=== PATIENT | male | born 1960 | race Native Hawaiian/Other Pacific Islander ===

== ENCOUNTER 2017-04-28 13:28 | Outpatient (CLI) | payer OTHER | END 2017-04-28 13:34 | disposition short-term general hospital (02) | LOC: AMB 13:28 | DX: M25.552 Pain in left hip (principal); S00.83XA Contusion of other part of head, initial encounter; W11.XXXA Fall on and from ladder, initial encounter; Y92.69 Other specified industrial and construction area as the place of occurrence of the external cause | CPT/HCPCS: A0425; A0427 ==

== ENCOUNTER 2017-04-28 13:34 | Emergency (ER) | payer OTHER ==
[~2017-04-28] VITALS: Ht 182.9 cm; Wt 127.0 kg
[2017-04-28 14:19] VITALS: BP 116/69; TEMP 98.4
[2017-04-28 14:37] LABS: PLATELET COUNT 240 K/uL (142-355)
[2017-04-28 14:42] LABS: POTASSIUM 3.6 mmol/L (3.6-5.2)
[2017-04-28 14:49] LABS: PARTIAL THROMBOPLASTIN TIME 22.3 SECONDS (24.5-33.6)
== END 2017-04-28 15:40 | disposition short-term general hospital (02) ==
LOC: ED 13:34
PROVIDERS: Family Medicine
DX: S32.89XA Fracture of other parts of pelvis, initial encounter for closed fracture (principal); Y30.XXXA Falling, jumping or pushed from a high place, undetermined intent, initial encounter; Y93.89 Activity, other specified; Y92.69 Other specified industrial and construction area as the place of occurrence of the external cause; Y99.0 Civilian activity done for income or pay; S50.812A Abrasion of left forearm, initial encounter; S50.811A Abrasion of right forearm, initial encounter; S80.812A Abrasion, left lower leg, initial encounter; S80.811A Abrasion, right lower leg, initial encounter; S00.03XA Contusion of scalp, initial encounter; S06.0X9A Concussion with loss of consciousness of unspecified duration, initial encounter; M54.2 Cervicalgia
CPT/HCPCS: 36415; 80053; 81000; 85027; 85610; 85730; 90715; 96374; 96375; 99285; J1170; J2550